=== PATIENT | female | born 1995 | race Caucasian/White ===

== ENCOUNTER 2018-05-23 14:03 | Emergency (ER) | payer OTHER ==
[2018-05-23] MEDS ORDERED: DEXAMETHASONE 10 MG/ML 1 ML INJ IM (15:30)
[2018-05-23] MEDS ORDERED: CLINDAMYCIN 300 MG INJ IM (15:30)
[2018-05-23] MEDS ORDERED: CLINDAMYCIN 600 MG INJ IM (15:30)
[2018-05-23] MEDS: KETOROLAC 60 MG INJ IM (16:06)
== END 2018-05-23 16:26 | disposition home or self-care (01) ==
LOC: FTE 14:03
DX: J03.90 Acute tonsillitis, unspecified (principal); F17.210 Nicotine dependence, cigarettes, uncomplicated
CPT/HCPCS: 81025; 87070; 96372; 99284-25

== ENCOUNTER 2018-06-08 09:47 | Emergency (ER) | payer OTHER ==
[2018-06-08] MEDS: ACETAMINOPHEN 325 MG TAB PO (11:01)
[2018-06-08] MEDS: IBUPROFEN 600 MG TAB PO (11:01)
== END 2018-06-08 12:28 | disposition home or self-care (01) ==
LOC: FTE 12:28
DX: S69.92XA Unspecified injury of left wrist, hand and finger(s), initial encounter (principal); X58.XXXA Exposure to other specified factors, initial encounter; Y92.9 Unspecified place or not applicable; Z87.891 Personal history of nicotine dependence
CPT/HCPCS: 73130; 73130-LT; 99283-25

== ENCOUNTER 2018-06-16 08:37 | Emergency (ER) | payer OTHER | END 2018-06-16 10:59 | disposition home or self-care (01) | LOC: FTE 08:37 | DX: S69.92XA Unspecified injury of left wrist, hand and finger(s), initial encounter (principal); F17.210 Nicotine dependence, cigarettes, uncomplicated; X58.XXXA Exposure to other specified factors, initial encounter; Y92.89 Other specified places as the place of occurrence of the external cause | CPT/HCPCS: 29125; 73130-LT; 99283-25 ==